=== PATIENT | male | born 1980 | race Caucasian/White ===

== ENCOUNTER 2019-11-03 00:27 | Emergency (ER) | payer BC ==
[~2019-11-03] VITALS: Ht 167.6 cm; Wt 83.2 kg
[2019-11-03 00:35] VITALS: Ht 167.6 cm; Wt 83.2 kg
[2019-11-03 01:29] VITALS: BP 137/78
== END 2019-11-03 01:29 | disposition home or self-care (01) ==
LOC: ED 00:27
DX: S61.411A Laceration without foreign body of right hand, initial encounter (principal); W45.8XXA Other foreign body or object entering through skin, initial encounter; Y93.89 Activity, other specified; Y92.89 Other specified places as the place of occurrence of the external cause; Y99.8 Other external cause status
CPT/HCPCS: J2001